=== PATIENT | male | born 1950 | race Caucasian/White ===

== ENCOUNTER 2024-10-27 06:12 | Inpatient (IN) | payer OTHER, SELFPAY ==
[2024-10-26 23:58] VITALS: BP 104/53; BMI 31.9
[2024-10-27] VITALS (12 sets, daily range): BP systolic 92–152; BP diastolic 43–79; BMI 31.7
[2024-10-27 00:23] LABS: ALT (SGPT) 27 U/L (0-50); AST (SGOT) 20 U/L (17-59); Albumin 3.6 g/dl (3.5-5.0); Alkaline Phosphatase 56 U/L (38-126); Blood Urea Nitrogen 35 mg/dl (9-20); Calcium 9.8 mg/dl (8.4-10.2); Carbon Dioxide 27 mmol/L (22-30); Chloride 97 mmol/L (98-107); Estimated Creatinine Clearance 70 ml/min; Glucose 162 mg/dl (70-99); INR 1.14; PT 14.9 Sec (11.4-14.6); Potassium 5.1 mmol/L (3.5-5.1); Sodium 133 mmol/L (135-145); Total Bilirubin 0.7 mg/dl (0.2-1.3); Total Protein 6.4 g/dl (6.3-8.2); eGFR > 60.00
[2024-10-27 00:24] LABS: APTT 34.8 Sec (23.4-35.0)
[2024-10-27 00:37] LABS: % Basophils 0.6 % (0-2); % Eosinophils 1.4 % (0-6); % Immature Granulocytes 1.8 % (0-0.5); % Lymphocytes 12.5 % (20.5-51.1); % Monocytes 5.3 % (1.7-9.3); % Neutrophils 78.4 % (42.2-75.2); Absolute Basophils 0.1 10^3/uL (0-0.2); Absolute Eosinophils 0.2 10^3/uL (0-0.7); Absolute Immature Granulocytes 0.2 10^3/uL (0-0.05); Absolute Lymphocytes 1.6 10^3/uL (1.2-3.4); Absolute Monocytes 0.7 10^3/uL (0.1-0.6); Absolute Neutrophils 10.2 10^3/uL (1.4-6.5); Hematocrit 36.2 % (39.0-52.0); Hemoglobin 12.3 g/dL (13.0-18.0); Mean Corpuscular Hgb 30.4 pg (27.0-31.0); Mean Corpuscular Volume 89.6 fL (80.0-94.0); Mean Platelet Volume 10.6 fL (7.4-10.4); Nucleated Red Blood Cells % 0 % (-); Platelet Count 409 10^3/uL (130-400); Red Blood Cell Count 4.04 10^6/uL (4.70-6.10); Red Cell Dist. Width 12.7 % (11.5-14.5)
--- NOTE | 2024-10-27 03:09 | ED.GENMED ---
History of Present Illness
General
Chief Complaint: Rectal Bleeding
Source: patient
Exam Limitations: none
Time Seen by Provider: 10/27/24 02:44
Nursing documentation reviewed up to this point in time: agreed with
History of Present Illness
History of Present Illness:
This is a 74 y/o male with pmh of afib on xarelto, htn, bipolar disorder who presents to the emergency department today with concerns of dark tarry stools for the past 3 days. Patient comes from [facility] and states that when he first started
having these episodes, a nurse was helping him clean up and noticed the stool was very dark in appearance. Pt denies iron supplementation, pepto-bismol use. Patient denies NSAID use, abdominal pain, toyin rectal bleeding, fevers, chills, chest pain,
sob.
Review of Systems
Review of Systems
All Other Systems: ROS reviewed and negative except as documented in HPI and ROS
Phy Exam
Physical Exam
Physical Exam:
General: Patient is well appearing and in no acute distress; non-toxic
Skin: Warm and dry, no rashes or lesions
Head: Normocephalic, atraumatic
Eyes: Sclera non-icteric. EOMs intact.
Cardiac: Regular rate and rhythm, no murmurs
Peripheral Vascular: No lower extremity swelling or edema
Pulm: Normal respiratory effort, no wheezes, rales, or rhonchi
Abdomen: No abdominal tenderness to palpation
Genitourinary: Dark tarry heme positive stool within rectal vault
Neuro: CN II-XII intact, no focal neurologic deficits.
Psychiatric: Appropriate mood and affect.
Course
Orders/Labs/Results
Orders:
Orders
10/26/24 23:55
Type+Screen Urgent
Cardiac Monitoring- Treatment ONCE
IV Insert/Care/Rem.- Treatment PRN
Complete Blood Count/With Diff Urgent
Comprehensive Metabolic Panel Urgent
PTT Urgent
Prothrombin Time Urgent
Pulse Ox/spot Check [RESP] Urgent
Quantity: 1
Special Instructions: ON ROOM AIR
10/27/24 01:02
ABO2 Urgent
BBK Wristband Number:
Associate notified that ABO2 has been ordered: [id number]
Date: 10/27/24
Time: 00:18
Biological Plant Operator ID: [id number]
10/27/24 03:21
0.9% Sodium Chloride 1000 ml [Nss] 1,000 ml IV BOLUS
10/27/24 04:01
Pantoprazole [Protonix IV] 40 mg IV NOW STA
10/27/24 05:00
Flush (0.9% Sodium Chloride) [Flush (Nss)] See Dose Instructions IV PER PROTOCOL
10/27/24 06:00
Admit/Transfer Patient As Directed
Co-Sign Provider:
Level of Care: Inpatient admission
Assign to:: Telemetry
Physician / Group: hospitalist
Diagnosis: GI bleed
Reason for Telemetry: Other
Other Reason for Telemetry: gi bleed
Date to Stop Telemetry: 10/29/24
Time to Stop Telemetry: 11:00
Reason for Hospitalization: gi bleed
Expected length of stay greater than two midnights?: Yes
ELOS- Estimated Length of Stay in days: 2
I certify the patient meets the requirements for IP care: Yes
Clear Liquid
At Your Request: Full Participation
Does patient need a safe tray?: No
10/27/24 06:01
Code Status As Directed
Resuscitation Status: Full Code
10/27/24 07:44
Insulin Aspart Corrective Low [Novolog Flexpen-Low Resistance] See Protocol SC AC
Ondansetron Injectable [Zofran] 4 mg IV Q6HPRN PRN
10/27/24 07:44
Consult Notification Routine
Specialty to Notify: Gastroenterology
Date consulting provider notified: 10/27/24
Time consulting provider notified: 07:45
Notified:: Provider
Comment: TT
GASTROINTESTINAL CONSULT Routine
Consulting Provider: Benoit Martines
Was physician already notified: No
Reason for consult: upper gi bleed
Activity As Directed
Activity Level: With Assistance
Bedside Glucose Monitoring As Directed
Frequency: AC&HS
INT (Intravenous Needle Therapy) As Directed
Comment: Place 2 IV catheters of the largest bore possible until stable
Pneumatic Compression Sleeves As Directed
Type: Knee high
Vital Signs As Directed
Frequency: Per unit guidelines
DX Deep Vein Thrombosis Video Routine
10/27/24 08:00
H&H Q8H
ARIPiprazole [Abilify] 5 mg PO DAILY
Bupropion(24Hr)Extended Releas [WELLBUTRIN XL (24 hour extended release)] 450 mg PO DAILY
Gabapentin [Neurontin] 900 mg PO DAILY
Metoprolol Xl [Toprol Xl] 25 mg PO DAILY
Oseltamivir Phosphate [Tamiflu] 75 mg PO DAILY
testosterone See Dose Instructions TRANSDERM DAILY
10/27/24 16:00
H&H Q8H
10/27/24 18:00
Pantoprazole [Protonix IV] 40 mg IV Q12H
10/29/24 11:00
DC Protocol for Telemetry ONCE
Abnormal Lab Results
10/27/24
00:03
WBC 13.0 H 10^3/uL
(4.8-10.8)
RBC 4.04 L 10^6/uL
(4.70-6.10)
Hgb 12.3 L g/dL
(13.0-18.0)
Hct 36.2 L %
(39.0-52.0)
Plt Count 409 H 10^3/uL
(130-400)
MPV 10.6 H fL
(7.4-10.4)
Abs Immat Gran (auto) 0.2 H 10^3/uL
(0-0.05)
Absolute Neuts (auto) 10.2 H 10^3/uL
(1.4-6.5)
Absolute Monos (auto) 0.7 H 10^3/uL
(0.1-0.6)
Immature Gran % 1.8 H %
(0-0.5)
Neutrophils % 78.4 H %
(42.2-75.2)
Lymphocytes % 12.5 L %
(20.5-51.1)
PT 14.9 H Sec
(11.4-14.6)
Sodium 133 L mmol/L
(135-145)
Chloride 97 L mmol/L
(98-107)
BUN 35 H mg/dl
(9-20)
Glucose 162 H mg/dl
(70-99)
10/27/24 00:03
10/27/24 00:03
Vital Signs
Initial and Last Documented VS:
Initial Vital Signs
Temp Pulse Resp BP Pulse Ox
98.0 F 65 20 104/53 97
10/26/24 23:58 10/26/24 23:58 10/26/24 23:58 10/26/24 23:58 10/26/24 23:58
Last Documented Vital Signs
Temp Pulse Resp BP Pulse Ox
98.0 F 73 17 121/67 98
10/26/24 23:58 10/27/24 07:30 10/27/24 07:30 10/27/24 07:00 10/27/24 07:30
MDM/Problems Addressed
Differential Diagnosis Includes:
ddx include gastric ulcer, duodenal ulcer, esophagitis, esophageal varies, devin pichardo tear
MDM/Problems Addressed:
74 y/o male presents to the ER with 3 days of melena. Heme positive stool on exam. He is hemodynamically stable. Case reviewed with ED attending. Protonix started. No indication for xarelto reversal at this time. Will refer for admission.
*Pulse Oximetry
Patient hypoxic: no
*Critical Care Note
Total Time (30-74mins, 75-104mins- exclusive of procedures): Not Applicable
Data Reviewed
Review of Other/Old Records Reveals: Records (no previous ER physician documentation or discharge summaries to review)
Source: patient and records
ED Attending Note
-
Portions of this chart may have been created with voice recognition software.� Occasional wrong word or��sound alike� substitutions may have occurred due to the inherent limitations of voice recognition software.
Discharge Plan
Departure
Patient Disposition: Admit
Date of Disposition: 10/27/24
Time of Disposition: 04:01
Admit to: Med/Surg
Presentation/result/management discussed w/ accepting MD/DO: Hospitalist
Patient with high blood pressure during this ER visit?: No
Condition: Fair
Discharge Problem:
Acute gastrointestinal bleeding
Interventions
Interventions:
*Risk Screen - Suicide Last Done: 10/26/24 23:58
*General Assessment Last Done: 10/26/24 23:58
*Neglect/Abuse Screening Last Done: 10/26/24 23:58
*ED- Fall Risk Assessment Last Done: 10/26/24 23:58
*Nursing Disposition Last Done: 10/27/24 07:44
WV-Rsqebs-Vnyylspmhy Assessment Last Done: 10/27/24 03:00
ED- Cardiac Assessment Last Done: 10/27/24 00:00
ED- Pulmonary Assessment Last Done: 10/27/24 00:00
Discharge Date and Time
Discharge Date/Time: 10/27/24 07:45
[2024-10-27] MEDS: NSS 1000 IV (03:37)
[2024-10-27] MEDS: FLUSH (NSS) 1 FLUSH IV (04:27)
[2024-10-27] MEDS: PROTONIX IV 40 MG IV ×2 (04:27→18:09)
--- NOTE | 2024-10-27 06:25 | EDRN ---
Patient is sleeping at this time, call ramos in reach, admission orders were placed and waiting on a bed at this time.
--- NOTE | 2024-10-27 06:47 | W.PN.HOSP.TC ---
Today's Communication/Plan
-
see a/p
Assessment / Plan
Assessment / Plan
Physical Exam
General: No acute distress. Appears Comfortable at this time. Obese
HEENT: NormoCephalic, Anicteric, Moist mucous membranes and Atraumatic
Respiratory: Clear to auscultation b/l, no crackles or wheezing
Cardiac: S1/S2 and Regular Rhythm
GI: Soft, Non Tender, Non Distended, Bowel Sounds present
Musculoskeletal: No Clubbing, No Cyanosis and No Edema
Skin: Warm
Neuro: AOx3 conversant coherent
Psych: Calm
74M Bipolar NIDDM afib Xarelto HTN presenting from SNF Rehab with history of 3 days of melena. CBC showed stable hemoglobin. Hemodynamically stable. Suspect upper GI bleed/ulcer in the setting of Xarelto use.
PLAN:
GI bleed
- Tele admit
- ppi iv bid
- type and screen, trend h&h and transfuse for significant drop or Hgb < 7 (has not required transfusion)
- holding Xarelto.
- holding bp meds for now
- clear liquid diet
- GI consultation appreciated npo after midnight for EGD
DM II
- holding metformin
- sliding scale insulin
DVT PPX - SCDs
Code status - Full Code
I spent a total of 50 minutes with the patient or on the floor. More than 50% of this time involved counseling and coordination of care.
Anticipated Discharge: 24 - 48 hours
Subjective/Interval History
-
Date of Service: October 27, 2024
No acute distress, resting comfortably in bed. Reports overall feeling well. Denies further bloody bowel movements since admission.
Objective Data
-
Labs:
Laboratory Results
10/27/24
00:03
WBC 13.0 H
Hgb 12.3 L
Hct 36.2 L
Plt Count 409 H
PT 14.9 H
INR 1.14
APTT 34.8
Sodium 133 L
Potassium 5.1
Chloride 97 L
Carbon Dioxide 27
BUN 35 H
Creatinine 1.0
Glucose 162 H
Calcium 9.8
Total Bilirubin 0.7
AST 20
ALT 27
Alkaline Phosphatase 56
Vital Signs:
Vital Signs
Temp Pulse Resp BP Pulse Ox
98.0 F 66 17 116/70 99
10/26/24 23:58 10/27/24 06:15 10/27/24 06:15 10/27/24 06:00 10/27/24 06:15
--- NOTE | 2024-10-27 06:58 | HPS.HSE ---
Family Physician
-
Family Physician: Elle Liao MD
Chief Complaint
-
Melena
History of Present Illness
This is a 74-year-old male with past medical history significant for bipolar disorder, czl-rhprvry-azqskxnti diabetes, atrial fibrillation on Xarelto, hypertension transferred from rehab to the emergency department for melena.
Patient unable to provide much history. According to him he been doing well until the last 2 to 3 days when he started having dark stool. On the day of transfer the patient had large diarrheal stool that was back and felt to be bloody. He denied
feeling dizzy or lightheaded. He denied having any abdominal pain. He denies any nausea or vomiting. Denies any acute changes in his medication. He reports that he has been on Xarelto for some time without any issues. He denies any addition of
NSAIDs to his medications. Patient denies any prior history of GI bleed. He denies any alcohol use. Unknown history of any prior EGD or colonoscopy.
While he was in the emergency department he had a heme positive dark stool.
Blood pressure was 99/50 with a pulse of 65 satting 98% on room air. He was afebrile. His hemoglobin was 12.3 which is similar to prior. He has normal coags and platelets. White count was slightly elevated at 13. His electrolytes were normal.
BUN slightly elevated at 35 and creatinine of 1.0. Glucose was normal.
Medical History
Past Medical History
Past Medical History: Reports Arrhythmia (Atrial fibrillation on Xarelto), HTN, NIDDM and Psychiatric (Bipolar disorder)
Past Surgical History: Reports Other
Social History
Tobacco: Non-smoker
Alcohol: None
Drug: None
Personal: Single
Family History
Family History: Not pertinent
Allergies / Home Medications
Allergies reflects when Allergies were last updated in [facility].
Home Medications with original date entered in [facility]
Allergy/Medication List:
Allergies
Allergy/AdvReac Type Severity Reaction Status Date / Time
latex Allergy Mild Unknown Verified 10/27/24 00:09
Home Medications
acetaminophen 325 mg tablet (Tylenol) 650 mg PO Q6H PRN pain 10/27/24
amlodipine 2.5 mg tablet 2.5 mg PO DAILY 10/27/24
aripiprazole 5 mg tablet (Abilify) 5 mg PO DAILY 10/27/24
bisacodyl 10 mg rectal suppository 10 mg OR BID no BM 10/27/24
bupropion HCl 450 mg 24 hr tablet, extended release 450 mg PO DAILY 10/27/24
gabapentin 300 mg tablet 900 mg PO DAILY 10/27/24
magnesium hydroxide 400 mg/5 mL oral suspension (Milk of Magnesia) 30 ml PO DAILY PRN no BM 10/27/24
metformin 1,000 mg tablet 1,000 mg PO BID 10/27/24
methocarbamol 500 mg tablet 500 mg PO TID 10/27/24
metoprolol succinate 25 mg tablet,extended release 24 hr 25 mg PO DAILY 10/27/24
multivitamin 1 tab PO DAILY 10/27/24
oseltamivir 75 mg capsule (Tamiflu) 75 mg PO DAILY 10/27/24
ramipril 10 mg capsule 10 mg PO DAILY 10/27/24
rivaroxaban 20 mg tablet (Xarelto) 20 mg PO DAILY 10/27/24
testosterone 1.62 % (20.25 mg/1.25 gram) transdermal gel packet 3 mg transdermal DAILY 10/27/24
triamterene 37.5 mg-hydrochlorothiazide 25 mg tablet 1 tab PO DAILY 10/27/24
Review of Systems
-
History Source: Patient
Constitutional: Reports No Symptoms
EENT: Reports No Symptoms
Cardiac: Reports No Symptoms
Abdomen/GI: Reports Black Stools
: Reports No Symptoms
Musculoskeletal: Reports No Symptoms
Skin: Reports No Symptoms
Neurological: Reports No Symptoms
Endocrine: Reports No Symptoms
Hematologic/Lymphatic: Reports No Symptoms
Psych: Reports No Symptoms
Physical Exam
Vital Signs
Vital Signs
Temp Pulse Resp BP Pulse Ox
98.0 F 66 17 116/70 99
10/26/24 23:58 10/27/24 06:15 10/27/24 06:15 10/27/24 06:00 10/27/24 06:15
Physical Exam
General: Well Developed, Well Nourished, No Apparent Distress and Comfortable
HEENT: NormoCephalic, Anicteric, Moist mucous membranes and Atraumatic
Respiratory: Clear
Cardiac: S1/S2 and Regular Rhythm
Breast: Deferred by me
GI: Soft, Non Tender, Non Distended and Normal Bowel Sounds
Rectal: Hem Positive
Genito-urinary: Deferred by me
Musculoskeletal: No Clubbing, No Cyanosis and No Edema
Skin: Warm
Neuro: AO x 3 and Nonfocal/grossly intact
Hematologic/Lymphatic: No Lymphadenopathy
Psych: Calm
Laboratory Results
-
10/27/24 00:03
10/27/24 00:03
Laboratory Results
PT 14.9 Sec (11.4-14.6) H 10/27/24 00:03
INR 1.14 10/27/24 00:03
APTT 34.8 Sec (23.4-35.0) 10/27/24 00:03
Total Bilirubin 0.7 mg/dl (0.2-1.3) 10/27/24 00:03
AST 20 U/L (17-59) 10/27/24 00:03
ALT 27 U/L (0-50) 10/27/24 00:03
Alkaline Phosphatase 56 U/L (38-126) 10/27/24 00:03
Data Reviewed
-
Lab Data: Labs Reviewed by me
Old Records: Reviewed
Impression/Plan
-
IMPRESSION:
This is a 74-year-old with history of 3 days of melena presenting to the emergency department after a large melanotic stool. History of A-fib currently on Xarelto with last use yesterday. No abdominal pain nausea or vomiting. CBC shows stable
hemoglobin. Hemodynamically stable as well. Suspect upper GI bleed in the setting of Xarelto use but cannot rule out bleeding ulcer.
PLAN:
GI bleed
- admit to telemetry
- ppi iv bid
- type and screen, trend h&h and transfuse for significant drop or Hgb < 7
- holding Xarelto. Given stability, did not reverse
- holding bp meds for now
- clear liquid diet
- GI consultation
DM II
- holding metformin
- sliding scale insulin
DVT PPX - SCDs
Code status - Full Code
[2024-10-27 08:10] LABS: Glucose - Point of Care 134 mg/dl (70-99)
[2024-10-27] MEDS: NOVOLOG FLEXPEN-LOW RESISTANCE SC ×2 (08:19→12:19)
--- NOTE | 2024-10-27 08:46 | CON.GI ---
Addendum entered and electronically signed by Benoit Martines MD 10/27/24 17:10:
The patient was seen and examined by me independently in collaboration with the nurse practitioner.
Past medical history/social history/medications/allergies/family history reviewed.
Lab data and imaging data reviewed.
74-year-old male past medical history atrial fibrillation on Xarelto presenting with melena. Hemoglobin is stable at 12. BUN is a little elevated at 35. He denies any GI complaints. Prior NSAID use. Last Xarelto was 10/25.
Given NSAID use suspect he may have peptic ulcer disease, versus gastritis or duodenitis.
Discussed with patient risk, alternatives, benefits of upper endoscopy he is agreeable. Risks of endoscopy include but not limited to bleeding, infection, perforation. Patient initially hesitant but now agreeable. Will plan to proceed with
endoscopy tomorrow.
We did discuss a possible colonoscopy if the upper endoscopy is negative which the patient would not like to proceed with. However, we can readdress after endoscopy findings.
Addendum entered and electronically signed by OMEGA Aldana 10/27/24 09:49:
offered EGD today but pt declines. He still declines for me to call significant other. Will allow clears and he will review with Dr. Martines for tomorrow. He also declines colon
Original Note:
Consultation
-
Date/Time Consultation Requested: 10/27/24 7445
Date/Time Consultation Performed: 10/27/24 0930
Medical History
Chief Complaint / HPI
History of Present Illness:
Pt is a 74yo with hx bipolar disorder, afib on Xarelto, HTN, NIDDM with onset of melena. In review with patient he admits to care in [place] but had recent back fracture with need for SNF. He admits to taking a few Aleve at home with fall then
ended up at SNF for rehab. Pt admits to hx EGD and colon in past years ago in [place] did not recall any abnormal findings. He does admits to hx GERD but no chronic meds. He also admit to recent rectal soreness and diarrhea prior to admission.
He otherwise denies odynophagia, dysphagia, nausea, vomiting, abdominal pain, constipation or red blood in stools. On admission hbg was 12.3 with BUN 356. WBC 13, Na 133, glucose 162.
Past Medical History
Past Medical History: Arrhythmias (afib ), GERD, HTN, NIDDM and Psychiatric (bipolar )
Social History
Tobacco: Non-Smoker
Alcohol: None
Drug: None
Living: [facility] (current SNF but was alone prior to admission)
Employment: Retired
Family History
Family History: Other (no family hx GI problems)
Allergies / Home Medications
Allergy/AdvReac Type Severity Reaction Status Date / Time
latex Allergy Mild Unknown Verified 10/27/24 00:09
�Medication �Instructions �Recorded
acetaminophen 325 mg tablet 650 mg PO Q6H PRN pain 10/27/24
(Tylenol)
amlodipine 2.5 mg tablet 2.5 mg PO DAILY 10/27/24
aripiprazole 5 mg tablet (Abilify) 5 mg PO DAILY 10/27/24
bisacodyl 10 mg rectal suppository 10 mg NE BID no BM 10/27/24
bupropion HCl 450 mg 24 hr tablet, 450 mg PO DAILY 10/27/24
extended release
gabapentin 300 mg tablet 900 mg PO DAILY 10/27/24
magnesium hydroxide 400 mg/5 mL 30 ml PO DAILY PRN no BM 10/27/24
oral suspension (Milk of Magnesia)
metformin 1,000 mg tablet 1,000 mg PO BID 10/27/24
methocarbamol 500 mg tablet 500 mg PO TID 10/27/24
metoprolol succinate 25 mg 25 mg PO DAILY 10/27/24
tablet,extended release 24 hr
multivitamin 1 tab PO DAILY 10/27/24
oseltamivir 75 mg capsule (Tamiflu) 75 mg PO DAILY 10/27/24
ramipril 10 mg capsule 10 mg PO DAILY 10/27/24
rivaroxaban 20 mg tablet (Xarelto) 20 mg PO DAILY 10/27/24
testosterone 1.62 % (20.25 mg/1.25 3 mg transdermal DAILY 10/27/24
gram) transdermal gel packet
triamterene 37.5 1 tab PO DAILY 10/27/24
mg-hydrochlorothiazide 25 mg tablet
Review of Systems
-
Unable to obtain full review of systems at this time due to: Other (some limited history )
History Source: Patient
Constitutional: Reports Weight Loss (few lbs with SNF)
EENT: Reports No Symptoms
Respiratory: Reports No Symptoms
Cardiac: Reports No Symptoms
Abdomen/GI: Reports Diarrhea, Black Stools (dark stools ) and Other (recent rectal discomfort )
: Reports No Symptoms
Musculoskeletal: Reports Other (recent fall with back pain)
Skin: Reports No Symptoms
Neurological: Reports Weakness
Endocrine: Reports No Symptoms
Hematologic/Lymphatic: Reports Bleeding
Vital Signs
Temp Pulse Resp BP Pulse Ox
98.0 F 73 17 121/67 98
10/26/24 23:58 10/27/24 07:30 10/27/24 07:30 10/27/24 07:00 10/27/24 07:30
Physical Exam
Exam
General: Well Developed, Well Nourished and No Apparent Distress
HEENT: Normocephalic and Anicteric
Respiratory: Clear
Cardiac: Regular Rhythm
GI: Soft and Non Distended
Rectal: Brown (dark brown heme + some rectal irritation but admits to some improvement )
Genito-urinary: No Costovertebral Tender
Musculoskeletal: No Clubbing and No Cyanosis
Skin: Warm and Dry
Neuro: Awake, Alert and AO x 3
Psych: Calm
Results
WBC 13.0 10^3/uL (4.8-10.8) H 10/27/24 00:03
Hgb 12.3 g/dL (13.0-18.0) L 10/27/24 00:03
Hct 36.2 % (39.0-52.0) L 10/27/24 00:03
MCV 89.6 fL (80.0-94.0) 10/27/24 00:03
Plt Count 409 10^3/uL (130-400) H 10/27/24 00:03
Absolute Neuts (auto) 10.2 10^3/uL (1.4-6.5) H 10/27/24 00:03
PT 14.9 Sec (11.4-14.6) H 10/27/24 00:03
INR 1.14 10/27/24:03
APTT 34.8 Sec (23.4-35.0) 10/27/24 00:03
Sodium 133 mmol/L (135-145) L 10/27/24:03
Potassium 5.1 mmol/L (3.5-5.1) 10/27/24 00:03
Chloride 97 mmol/L (98-107) L 10/27/24 00:03
Carbon Dioxide 27 mmol/L (22-30) 10/27/24 00:03
BUN 35 mg/dl (9-20) H 10/27/24 00:03
Creatinine 1.0 mg/dL (0.7-1.3) 10/27/24 00:
Calcium 9.8 mg/dl (8.4-10.2) 10/27/24 00:03
Total Bilirubin 0.7 mg/dl (0.2-1.3) 10/27/24 00:03
AST 20 U/L (17-59) 10/27/24 00:03
ALT 27 U/L (0-50) 10/27/24 00:03
Alkaline Phosphatase 56 U/L (38-126) 10/27/24 00:03
Diagnostic Image Results:
Prior GI Procedures:
EGD: in past did not recall abnormal results
Colonoscopy: in past did not recall abnormal results in [place]
Assessment / Plan
-
Pt is a 74yo with hx bipolar disorder, afib on Xarelto, HTN, NIDDM with onset of melena. In review with patient he admits to care in [place] but had recent back fracture with need for SNF. He admits to taking a few Aleve at home with fall then
ended up at SNF for rehab. Pt admits to hx EGD and colon in past years ago in [place] did not recall any abnormal findings. He does admits to hx GERD but no chronic meds. He also admit to recent rectal soreness and diarrhea prior to admission.
He otherwise denies odynophagia, dysphagia, nausea, vomiting, abdominal pain, constipation or red blood in stools. On admission hbg was 12.3 with BUN 356. WBC 13, Na 133, glucose 162.
-melena prior to admission rectal dark brown heme + on admission
-mild anemia
-recent rectal irritation
-recent fall with back injury
-Afib on Xarelto prior to admission
other med problems:
-bipolar disorder
-HTN
-hyperlipidemia
-NIDDM
PLAN:
etiology of melena related to PUD with hx some prior NSAID in setting of Xarelto vs gastritis, AVM, mass vs other
plan for EGD will review timing with Dr. Martines
if EGD neg consider colonoscopy
last Xarelto 10/25 per SNF cont hold
trend hbg transfuse less than 7
trend stool pattern - pt reports no stools overnight
cont PPI BID
reviewed with nursing for local rectal care with complaints of pain
I offered to call significant other and pt declined
I reviewed with SNF pt was on Tamiflu prior to admission for prophylaxis was not positive prior to admission
-
-
Thank you for consultation and allowing me to participate in the patient's care. Please call the admissions manager rn GI physician during the after hours with any questions or concerns.
[2024-10-27] MEDS: NEURONTIN 900 MG PO (09:52)
[2024-10-27] MEDS: TOPROL XL 25 MG PO (09:53)
[2024-10-27] MEDS: TAMIFLU 75 MG PO (09:53)
[2024-10-27] MEDS: WELLBUTRIN XL (24 hour extended release) 450 MG PO (09:53)
--- NOTE | 2024-10-27 10:12 | CM ---
Addendum entered by Angeli Peña 10/27/24 14:13:
Call to patients primary contact- number not in service. Per [facility], patient has [employer] insurance- ID# [id number], provided to admissions.
Original Note:
CM reviewed chart, patient seen bedside, initial assessment completed. Patient reports he came from [facility] for rehab, otherwise lives independently in a multiple story home, first floor set up, no steps to enter. Patient reports he is
looking to downsize. Patient reports he typically uses a walker for ambulation. Patient reports no children or family, does have one friend as a support. Patient reports he is agreeable to return to [facility] for rehab prior to discharging
home. Patient listed as self pay, does not remember insurance- call/referral sent to [facility] to obtain patients insurance information. TT to Hospitalist for PT orders. CM will continue to follow for all discharge planning needs.
Plan; return to [facility] SNF, may need auth for return, awaiting patients insurance confirmation.
[2024-10-27 10:34] LABS: Hematocrit 33.2 % (39.0-52.0); Hemoglobin 11.2 g/dL (13.0-18.0)
[2024-10-27 12:15] LABS: Glucose - Point of Care 147 mg/dl (70-99)
[2024-10-27] MEDS: ABILIFY 5 MG PO (12:19)
[2024-10-27 16:23] LABS: Hematocrit 35.8 % (39.0-52.0); Hemoglobin 12.1 g/dL (13.0-18.0)
[2024-10-27 16:33] LABS: Glucose - Point of Care 181 mg/dl (70-99)
[2024-10-27] MEDS: NOVOLOG FLEXPEN-LOW RESISTANCE 1 UNITS SC (18:10)
[2024-10-27] MEDS: NSS (PRESERVATIVE FREE) 10 ML IV (18:10)
[2024-10-27 21:55] LABS: Glucose - Point of Care 230 mg/dl (70-99)
[2024-10-28] VITALS (13 sets, daily range): BP systolic 18–154; BP diastolic 64–91
[2024-10-28] MEDS: PROTONIX IV 40 MG IV ×2 (05:19→17:26)
[2024-10-28] MEDS: NSS (PRESERVATIVE FREE) 10 ML IV ×2 (05:19→17:26)
[2024-10-28] MEDS: WELLBUTRIN XL (24 hour extended release) 450 MG PO (07:41)
[2024-10-28] MEDS: NEURONTIN 900 MG PO (07:41)
[2024-10-28] MEDS: TAMIFLU 75 MG PO (07:42)
[2024-10-28] MEDS: ABILIFY 5 MG PO (07:42)
[2024-10-28] MEDS: TOPROL XL 25 MG PO (07:42)
[2024-10-28 07:48] LABS: Hematocrit 33.9 % (39.0-52.0); Hemoglobin 11.8 g/dL (13.0-18.0); Mean Corp Hgb Conc. 34.8 g/dL (33.0-37.0); Mean Corpuscular Hgb 30.9 pg (27.0-31.0); Mean Corpuscular Volume 88.7 fL (80.0-94.0); Mean Platelet Volume 10.1 fL (7.4-10.4); Platelet Count 345 10^3/uL (130-400); Red Blood Cell Count 3.82 10^6/uL (4.70-6.10); Red Cell Dist. Width 12.8 % (11.5-14.5); White Blood Cell Count 10.3 10^3/uL (4.8-10.8)
[2024-10-28 08:07] LABS: Glucose - Point of Care 187 mg/dl (70-99)
--- NOTE | 2024-10-28 08:11 | W.PN.HOSP.TC ---
Today's Communication/Plan
-
see a/p
Assessment / Plan
Assessment / Plan
Physical Exam
General: No acute distress. Appears Comfortable at this time. Obese
HEENT: NormoCephalic, Anicteric, Moist mucous membranes and Atraumatic
Respiratory: Clear to auscultation b/l, no crackles or wheezing
Cardiac: S1/S2 and Regular Rhythm
GI: Soft, Non Tender, Non Distended, Bowel Sounds present
Musculoskeletal: No Clubbing, No Cyanosis and No Edema
Skin: Warm
Neuro: AOx3 conversant coherent
Psych: Calm
74M Bipolar NIDDM afib Xarelto HTN recent Hx Vertebrae Fx treated at [facility] and discharged to SNF rehab, presents from Rehab with history of 3 days of melena. CBC showed stable hemoglobin. Hemodynamically stable. Suspect upper GI bleed/ulcer
in the setting of Xarelto use.
PLAN:
GI bleed
- Tele admit
- ppi iv bid
- trend h&h and transfuse for significant drop or Hgb < 7 (has not required transfusion)
- GI consultation appreciated EGD noted Erosive Gastritis Biopsied, Avoid NSAIDs, PPI BID 8 wks, ok to restart Xarelto
DM II
- resume metformin
- sliding scale insulin
HTN
Cont home Metoprolol
Home Ramipril resumed
Amlodipine Triamterene-HCTZ on hold d/t intermittent low pressures
pAfib
Cont home Metoprolol
Xarelto resumed
Hypomagnesemia
monitor and replete as necessary
Hx Vertebrae Fx treated at [facility]
TLSO brace
PT/OT
pain control
cont Neurontin
hold methocarbamol
records requested
DVT PPX - SCDs
Code status - Full Code
I spent a total of 45 minutes with the patient or on the floor. More than 50% of this time involved counseling and coordination of care.
Anticipated Discharge: 24 - 48 hours
Subjective/Interval History
-
Date of Service: October 28, 2024
No acute distress sitting up comfortably in bed. Overall reports feeling well. Denies new acute issues a this time.
Objective Data
-
Labs:
Laboratory Results
10/28/24
06:49
WBC 10.3
Hgb 11.8 L
Hct 33.9 L
Plt Count 345
Sodium Pending
Potassium Pending
Chloride Pending
Carbon Dioxide Pending
BUN Pending
Creatinine Pending
Glucose Pending
Calcium Pending
Vital Signs:
Vital Signs
Temp Pulse Resp BP Pulse Ox
97.6 F 81 20 154/91 99
10/28/24 07:54 10/28/24 07:54 10/28/24 07:54 10/28/24 07:54 10/28/24 07:54
I&O
10/27/24 10/28/24 10/29/24
06:59 06:59 06:59
Intake Total 1260 / 1260
Output Total 1150 / 1150
Balance 110 / 110
[2024-10-28 08:17] LABS: Blood Urea Nitrogen 22 mg/dl (9-20); Calcium 9.3 mg/dl (8.4-10.2); Carbon Dioxide 26 mmol/L (22-30); Chloride 99 mmol/L (98-107); Estimated Creatinine Clearance 78 ml/min; Glucose 169 mg/dl (70-99); Magnesium 1.5 mg/dl (1.6-2.3); Phosphorus 3.8 mg/dl (2.5-4.5); Potassium 3.9 mmol/L (3.5-5.1); Sodium 136 mmol/L (135-145); eGFR > 60.00
[2024-10-28] MEDS: NOVOLOG FLEXPEN-LOW RESISTANCE 1 UNITS SC (08:36)
[2024-10-28 11:41] LABS: Glucose - Point of Care 198 mg/dl (70-99)
[2024-10-28] MEDS: NOVOLOG FLEXPEN-LOW RESISTANCE SC (11:51)
--- NOTE | 2024-10-28 12:10 | CM ---
CM reviewed chart, CM spoke with liaisons from [facility], Raisa and Best, regarding patients PLOF. Per liaison, patient was max assist/dependent with care, TLSO when out of bed, weight bearing as tolerated, AOx2. Best (liaison) will discuss
with therapy at SNF if patient needs brace to work with therapy- will bring brace to hospital if needed- will get back to with this information. Liaison reports patients friend, Corine, and step-son, are involved in patients care. Patient will
require both PT/OT for insurance auth back to [facility] when stable. CM will continue to follow for all discharge planning needs.
Plan; return to SNF when stable, will need auth.
--- NOTE | 2024-10-28 12:20 | W.PN.UPDATE ---
Update Note
Progress Note Update
EGD with erosive gastritis
plan:
- PPI bid x 8 weeks
- f/u biopsies
- ok to eat,
- ok to restart xarelto
will sign off
--- NOTE | 2024-10-28 12:28 | PTCARENOTE ---
10/28- Yunier delivered Brace to room. Patient was in procedure. He educated Nurses and PT how to use brace. Signed for brace at bedside.
[2024-10-28 12:32] LABS: Glucose - Point of Care 202 mg/dl (70-99)
[2024-10-28 17:20] LABS: Glucose - Point of Care 361 mg/dl (70-99)
[2024-10-28] MEDS: NOVOLOG FLEXPEN-LOW RESISTANCE 5 UNITS SC (17:25)
[2024-10-28 21:42] LABS: Glucose - Point of Care 198 mg/dl (70-99)
[2024-10-29 03:50] VITALS: BP 143/72
[2024-10-29] MEDS: NSS (PRESERVATIVE FREE) 10 ML IV ×2 (05:03→17:03)
[2024-10-29] MEDS: PROTONIX IV 40 MG IV ×2 (05:04→17:03)
[2024-10-29 07:20] VITALS: BP 124/65
[2024-10-29] MEDS: ABILIFY 5 MG PO (07:27)
[2024-10-29] MEDS: WELLBUTRIN XL (24 hour extended release) 450 MG PO (07:27)
[2024-10-29] MEDS: ALTACE 10 MG PO (07:27)
[2024-10-29] MEDS: NEURONTIN 900 MG PO (07:27)
[2024-10-29] MEDS: TAMIFLU 75 MG PO (07:28)
[2024-10-29] MEDS: XARELTO 20 MG PO (07:28)
[2024-10-29] MEDS: TOPROL XL 25 MG PO (07:28)
[2024-10-29] MEDS: GLUCOPHAGE 1000 MG PO ×2 (07:28→17:03)
--- NOTE | 2024-10-29 07:29 | W.PN.HOSP.TC ---
Today's Communication/Plan
-
pain control
PT/OT
monitor H&H while on Xarelto
possible discharge SNF rehab tomorrow if H&H improves
Assessment / Plan
Assessment / Plan
Physical Exam
General: No acute distress. Appears Comfortable at this time. Obese
HEENT: NormoCephalic, Anicteric, Moist mucous membranes and Atraumatic
Respiratory: Clear to auscultation b/l, no crackles or wheezing
Cardiac: S1/S2 and Regular Rhythm
GI: Soft, Non Tender, Non Distended, Bowel Sounds present
Musculoskeletal: No Clubbing, No Cyanosis and No Edema
Skin: Warm
Neuro: AOx3 conversant coherent
Psych: Calm
74M Bipolar NIDDM afib Xarelto HTN recent Hx Vertebrae Fx treated at [facility] and discharged to SNF rehab, presents from Rehab with history of 3 days of melena. CBC showed stable hemoglobin. Hemodynamically stable. Suspect upper GI bleed/ulcer
in the setting of Xarelto use.
PLAN:
GI bleed
- Tele admit
- ppi iv bid
- trend h&h and transfuse for significant drop or Hgb < 7 (has not required transfusion)
- GI consultation appreciated EGD noted Erosive Gastritis Biopsied, Avoid NSAIDs, PPI BID 8 wks, ok to restart Xarelto
DM II
- resume metformin
- sliding scale insulin
HTN
Cont home Metoprolol Ramipril
Amlodipine Triamterene-HCTZ on hold d/t intermittent low pressures
pAfib
Cont home Metoprolol
Xarelto cont
Hypomagnesemia
monitor and replete as necessary
Hx Vertebrae Fx treated at [facility]
TLSO brace
PT/OT appreciated return to SNF rehab
pain control
cont Neurontin
resume methocarbamol
records requested
DVT PPX - SCDs
Code status - Full Code
I spent a total of 45 minutes with the patient or on the floor. More than 50% of this time involved counseling and coordination of care.
Anticipated Discharge: Within 24 hours
Subjective/Interval History
-
Date of Service: October 29, 2024
No acute distress sitting up comfortably in bed. Reports increased back pain.
Objective Data
-
Labs:
Laboratory Results
10/29/24
06:00
WBC Pending
Hgb Pending
Hct Pending
Plt Count Pending
Sodium Pending
Potassium Pending
Chloride Pending
Carbon Dioxide Pending
BUN Pending
Creatinine Pending
Glucose Pending
Calcium Pending
Vital Signs:
Vital Signs
Temp Pulse Resp BP Pulse Ox
98 F 74 20 143/72 98
10/29/24 03:50 10/29/24 03:50 10/29/24 03:50 10/29/24 03:50 10/29/24 03:50
I&O
10/28/24 10/29/24 10/30/24
06:59 06:59 06:59
Intake Total 1260 / 1260 970 / 970
Output Total 1150 / 1150 500 / 500
Balance 110 / 110 470 / 470
[2024-10-29 08:11] LABS: Glucose - Point of Care 309 mg/dl (70-99)
[2024-10-29 08:18] LABS: Hematocrit 32.1 % (39.0-52.0); Hemoglobin 10.8 g/dL (13.0-18.0); Mean Corp Hgb Conc. 33.6 g/dL (33.0-37.0); Mean Corpuscular Hgb 30.6 pg (27.0-31.0); Mean Corpuscular Volume 90.9 fL (80.0-94.0); Mean Platelet Volume 10.6 fL (7.4-10.4); Platelet Count 286 10^3/uL (130-400); Red Blood Cell Count 3.53 10^6/uL (4.70-6.10); Red Cell Dist. Width 13.2 % (11.5-14.5); White Blood Cell Count 10.4 10^3/uL (4.8-10.8)
[2024-10-29 08:39] LABS: Blood Urea Nitrogen 25 mg/dl (9-20); Calcium 9.1 mg/dl (8.4-10.2); Carbon Dioxide 26 mmol/L (22-30); Chloride 100 mmol/L (98-107); Estimated Creatinine Clearance 70 ml/min; Glucose 266 mg/dl (70-99); Magnesium 1.7 mg/dl (1.6-2.3); Phosphorus 3.6 mg/dl (2.5-4.5); Potassium 3.6 mmol/L (3.5-5.1); Sodium 136 mmol/L (135-145); eGFR > 60.00
[2024-10-29] MEDS: NOVOLOG FLEXPEN-LOW RESISTANCE 4 UNITS SC (09:16)
--- NOTE | 2024-10-29 11:11 | CM ---
PT indicated SNF.
OT ordered placed.
Spoke with Raisa Horan . Pt will need auth for return to [facility] .
EGD done.
[facility] Pt
report [phone]
fax [phone]
PLAN To [facility] after auth
--- NOTE | 2024-10-29 12:31 | PN.CDI ---
CDI
- -
CDI:
Physician Documentation Request
Admit Date: 10/27/24 06:12
Dear Doctor David,
Patient presented to ED with concerns of dark tarry stools for 3 days. Exam showed heme positive stool in rectal vault.
Patient's home Xarelto was held.
Admitted for GI bleed.
Please clarify if a relationship exist between these conditions:
Yes, GI bleed is related to/associated with/due to/exacerbated by Xarelto
No, GI bleed is not related to/associated with/due to/exacerbated by Xarelto
Unable to determine
Use of terms such as suspected, likely, concern for, or probable (associated with a specific diagnosis that is being evaluated, monitored, or treated as if it exists) are acceptable and can be coded in the inpatient setting, when documented at the
time of discharge.
Thank you,
Lesly Banks RN BSN
CDI Specialist
tiger text
Please use your independent medical judgment in providing your response.
[2024-10-29] MEDS: MAGNESIUM SULFATE 50 IV (12:52)
[2024-10-29] MEDS: TYLENOL 1000 MG PO (12:58)
[2024-10-29 13:10] LABS: Glucose - Point of Care 281 mg/dl (70-99)
[2024-10-29] MEDS: NOVOLOG FLEXPEN-LOW RESISTANCE 3 UNITS SC (13:16)
[2024-10-29 15:43] VITALS: BP 105/49
[2024-10-29 16:52] LABS: Glucose - Point of Care 164 mg/dl (70-99)
[2024-10-29] MEDS: METHOCARBAMOL 500 MG PO ×2 (17:03→21:17)
[2024-10-29] MEDS: NOVOLOG FLEXPEN-LOW RESISTANCE 1 UNITS SC (17:05)
[2024-10-29 17:14] LABS: Glucose - Point of Care 149 mg/dl (70-99)
[2024-10-29 21:42] LABS: Glucose - Point of Care 218 mg/dl (70-99)
[2024-10-29 22:50] VITALS: BP 128/85
[2024-10-30] MEDS: PROTONIX IV 40 MG IV (05:44)
[2024-10-30] MEDS: NSS (PRESERVATIVE FREE) 10 ML IV (05:44)
--- NOTE | 2024-10-30 07:16 | W.PN.HOSP.TC ---
Today's Communication/Plan
-
Medically stable for discharge back to SNF rehab pending Insurance Auth
Assessment / Plan
Assessment / Plan
Physical Exam
General: No acute distress. Appears Comfortable at this time. Obese
HEENT: NormoCephalic, Anicteric, Moist mucous membranes and Atraumatic
Respiratory: Clear to auscultation b/l, no crackles or wheezing
Cardiac: S1/S2 and Regular Rhythm
GI: Soft, Non Tender, Non Distended, Bowel Sounds present
Musculoskeletal: No Clubbing, No Cyanosis and No Edema
Skin: Warm
Neuro: AOx3 conversant coherent
Psych: Calm
74M Bipolar NIDDM afib Xarelto HTN recent Hx Vertebrae Fx treated at [facility] and discharged to SNF rehab, presents from Rehab with history of 3 days of melena. CBC showed stable hemoglobin. Hemodynamically stable. Suspect upper GI bleed/ulcer
in the setting of Xarelto use.
PLAN:
GI bleed likely exacerbated by Xarelto
- Tele admit
- ppi iv bid
- trend h&h and transfuse for significant drop or Hgb < 7 (has not required transfusion)
- GI consultation appreciated EGD noted Erosive Gastritis Biopsied, Avoid NSAIDs, PPI BID 8 wks, ok to restart Xarelto
DM II
- resume metformin
- sliding scale insulin
HTN
Cont home Metoprolol Ramipril
Amlodipine Triamterene-HCTZ on hold d/t intermittent low pressures
pAfib
Cont home Metoprolol
Xarelto cont
Hypomagnesemia
monitor and replete as necessary
Hx Vertebrae Fx treated at [facility]
TLSO brace
PT/OT appreciated return to SNF rehab
pain control
cont Neurontin
resume methocarbamol
records requested
DVT PPX - SCDs
Code status - Full Code
Medically stable for discharge back to SNF rehab pending Insurance Auth
I spent a total of 35 minutes with the patient or on the floor. More than 50% of this time involved counseling and coordination of care.
Anticipated Discharge: Within 24 hours
Subjective/Interval History
-
Date of Service: October 30, 2024
Objective Data
-
Labs:
Laboratory Results
10/30/24
06:53
WBC Pending
Hgb Pending
Hct Pending
Plt Count Pending
Sodium Pending
Potassium Pending
Chloride Pending
Carbon Dioxide Pending
BUN Pending
Creatinine Pending
Glucose Pending
Calcium Pending
Vital Signs:
Vital Signs
Temp Pulse Resp BP Pulse Ox
98.1 F 65 20 128/85 98
10/29/24 22:50 10/29/24 22:50 10/29/24 22:50 10/29/24 22:50 10/29/24 22:50
I&O
10/29/24 10/30/24 10/31/24
06:59 06:59 06:59
Intake Total 970 / 970 960 / 960
Output Total 500 / 500 2350 / 2350
Balance 470 / 470 -1390 / -1390
[2024-10-30 07:29] VITALS: BP 136/71
[2024-10-30 07:35] LABS: Glucose - Point of Care 138 mg/dl (70-99)
[2024-10-30] MEDS: NOVOLOG FLEXPEN-LOW RESISTANCE SC (07:36)
[2024-10-30 08:02] LABS: Hematocrit 32.6 % (39.0-52.0); Hemoglobin 10.8 g/dL (13.0-18.0); Mean Corp Hgb Conc. 33.1 g/dL (33.0-37.0); Mean Corpuscular Hgb 30.1 pg (27.0-31.0); Mean Corpuscular Volume 90.8 fL (80.0-94.0); Mean Platelet Volume 10.7 fL (7.4-10.4); Platelet Count 269 10^3/uL (130-400); Red Blood Cell Count 3.59 10^6/uL (4.70-6.10); Red Cell Dist. Width 13.2 % (11.5-14.5); White Blood Cell Count 8.8 10^3/uL (4.8-10.8)
[2024-10-30] MEDS: ALTACE 10 MG PO (08:10)
[2024-10-30] MEDS: ABILIFY 5 MG PO (08:10)
[2024-10-30] MEDS: NEURONTIN 900 MG PO (08:11)
[2024-10-30] MEDS: TOPROL XL 25 MG PO (08:11)
[2024-10-30] MEDS: GLUCOPHAGE 1000 MG PO ×2 (08:11→17:01)
[2024-10-30] MEDS: WELLBUTRIN XL (24 hour extended release) 450 MG PO (08:11)
[2024-10-30] MEDS: XARELTO 20 MG PO (08:11)
[2024-10-30] MEDS: TAMIFLU 75 MG PO (08:11)
[2024-10-30] MEDS: METHOCARBAMOL 500 MG PO ×3 (08:11→21:33)
[2024-10-30 08:37] LABS: Blood Urea Nitrogen 24 mg/dl (9-20); Calcium 9.1 mg/dl (8.4-10.2); Carbon Dioxide 27 mmol/L (22-30); Chloride 101 mmol/L (98-107); Estimated Creatinine Clearance 78 ml/min; Glucose 128 mg/dl (70-99); Magnesium 1.9 mg/dl (1.6-2.3); Phosphorus 3.8 mg/dl (2.5-4.5); Potassium 3.5 mmol/L (3.5-5.1); Sodium 136 mmol/L (135-145); eGFR > 60.00
[2024-10-30 10:26] VITALS: BP 126/73; PULSE 71
[2024-10-30 11:00] LABS: Glucose - Point of Care 163 mg/dl (70-99)
[2024-10-30] MEDS: NOVOLOG FLEXPEN-LOW RESISTANCE 1 UNITS SC (11:36)
--- NOTE | 2024-10-30 13:47 | CM ---
CM reviewed chart, patient seen bedside, stable for discharge to SNF. IMM reviewed verbally, agreeable to return to [facility] for rehab. Auth submitted to [facility], reference #[id number], faxed to [phone]. Patient will require ambulance
transport upon discharge. CM will continue to follow for all discharge planning needs.
Plan; [facility], auth pending
[2024-10-30] MEDS: TYLENOL 1000 MG PO (14:36)
[2024-10-30] MEDS: LIDOCAINE 4% PATCH 2 PATCH TOPICAL (14:37)
[2024-10-30 15:34] VITALS: BP 110/64
[2024-10-30 16:16] LABS: Glucose - Point of Care 226 mg/dl (70-99)
[2024-10-30] MEDS: NOVOLOG FLEXPEN-LOW RESISTANCE 2 UNITS SC (17:01)
[2024-10-30] MEDS: MIRALAX 17 GRAMS PO (18:25)
[2024-10-30] MEDS: PROTONIX 40 MG PO (20:05)
[2024-10-30] MEDS: SENOKOT-S 1 TABLET PO (20:05)
[2024-10-30 22:22] LABS: Glucose - Point of Care 174 mg/dl (70-99)
[2024-10-30 23:40] VITALS: BP 127/59
[2024-10-31 07:00] VITALS: BP 144/74
--- NOTE | 2024-10-31 07:49 | W.PN.HOSP.TC ---
Today's Communication/Plan
-
discharge
Assessment / Plan
Assessment / Plan
Physical Exam
General: No acute distress. Appears Comfortable at this time. Obese
HEENT: NormoCephalic, Anicteric, Moist mucous membranes and Atraumatic
Respiratory: Clear to auscultation b/l, no crackles or wheezing
Cardiac: S1/S2 and Regular Rhythm
GI: Soft, Non Tender, Non Distended, Bowel Sounds present
Musculoskeletal: No Clubbing, No Cyanosis and No Edema
Skin: Warm
Neuro: AOx3 conversant coherent
Psych: Calm
74M Bipolar NIDDM afib Xarelto HTN recent Hx Vertebrae Fx treated at [facility] and discharged to SNF rehab, presents from Rehab with history of 3 days of melena. CBC showed stable hemoglobin. Hemodynamically stable. Suspect upper GI bleed/ulcer
in the setting of Xarelto use.
PLAN:
GI bleed likely exacerbated by Xarelto
- Tele admit
- ppi iv bid
- H&H stable throughout stay, no transfusion necessary during this hospitalization
- GI consultation appreciated EGD noted Erosive Gastritis Biopsied, Avoid NSAIDs, PPI BID 8 wks, ok to restart Xarelto
DM II
- resume metformin
- sliding scale insulin
HTN
Cont home Metoprolol Ramipril
Amlodipine Triamterene-HCTZ on hold d/t intermittent low pressures
pAfib
Cont home Metoprolol
Xarelto cont
Hypomagnesemia
monitor and replete as necessary
Constipation
miralax senokot-s
resolved with Fleet enema
Hx Vertebrae Fx treated at [facility]
TLSO brace
PT/OT appreciated return to SNF rehab
pain control
cont Neurontin
resume methocarbamol
Lidocaine Patches
DVT PPX - SCDs
Code status - Full Code
Medically stable for discharge back to SNF rehab with outpatient follow up recommendations.
Total Time Preparing Discharge ___40____ minutes including examination of the patient, summary of the hospital stay, instructions for continuing care to all relevant caregivers; and preparation of discharge records, prescriptions, and referral
forms if necessary.
Anticipated Discharge: Today
Subjective/Interval History
-
Date of Service: October 31, 2024
No acute distress sitting up comfortably in bed. Overall reports feeling well. Looking forward to returning to rehab.
Objective Data
-
Vital Signs:
Vital Signs
Temp Pulse Resp BP Pulse Ox
98.4 F 61 20 127/59 98
10/30/24 23:40 10/30/24 23:40 10/30/24 23:40 10/30/24 23:40 10/30/24 23:40
I&O
10/30/24 10/31/24 11/01/24
06:59 06:59 06:59
Intake Total 960 / 960 960 / 960
Output Total 2350 / 2350 700 / 700
Balance -1390 / -1390 260 / 260
[2024-10-31] MEDS: ABILIFY 5 MG PO (08:34)
[2024-10-31] MEDS: MIRALAX 17 GRAMS PO (08:35)
[2024-10-31] MEDS: LIDOCAINE 4% PATCH 2 PATCH TOPICAL (08:35)
[2024-10-31] MEDS: ALTACE 10 MG PO (08:35)
[2024-10-31] MEDS: GLUCOPHAGE 1000 MG PO (08:35)
[2024-10-31] MEDS: METHOCARBAMOL 500 MG PO ×2 (08:35→15:42)
[2024-10-31] MEDS: NEURONTIN 900 MG PO (08:37)
[2024-10-31] MEDS: SENOKOT-S 1 TABLET PO (08:37)
[2024-10-31] MEDS: PROTONIX 40 MG PO (08:37)
[2024-10-31] MEDS: TOPROL XL 25 MG PO (08:38)
[2024-10-31] MEDS: XARELTO 20 MG PO (08:38)
[2024-10-31] MEDS: TAMIFLU 75 MG PO (08:38)
[2024-10-31] MEDS: WELLBUTRIN XL (24 hour extended release) 450 MG PO (08:38)
[2024-10-31 08:42] LABS: Glucose - Point of Care 156 mg/dl (70-99)
[2024-10-31] MEDS: NOVOLOG FLEXPEN-LOW RESISTANCE SC (08:45)
--- NOTE | 2024-10-31 10:02 | CM ---
CM reviewed chart, auth approved 10/31-11/06, auth #[id number], provided to liaison [facility]. Patient has not had BM in four days, update to SNF. Patient seen bedside, aware transport scheduled for 3:30 p.m. to rehab, pending BM. CM will
continue to follow for all discharge planning needs.
Plan; auth approved to [facility], 3:30 p.m. ambulance transport scheduled, pending BM
[facility]:
Report: [phone]
[2024-10-31] MEDS: NOVOLOG FLEXPEN-LOW RESISTANCE 1 UNITS SC (10:46)
[2024-10-31 11:55] LABS: Glucose - Point of Care 245 mg/dl (70-99)
[2024-10-31 12:28] VITALS: BP 144/74; PULSE 76
[2024-10-31] MEDS: NOVOLOG FLEXPEN-LOW RESISTANCE 2 UNITS SC (12:39)
--- NOTE | 2024-10-31 14:28 | W.DCSUMMARY ---
Discharge Summary
Discharge Data
Date of Admission: 10/27/24
Date of Discharge: 10/31/24
-
Pending Results: No
Discharge Plan
-
Patient Disposition: Jail/SNF
Discharge Diagnosis/Procedures: GI bleed likely exacerbated by Xarelto
Erosive Gastritis
Diabetes
Hypertension
Paroxysmal Atrial Fibrillation
History Vertebrae Fracture treated at [facility]
Condition: Fair
Diet: Diabetic, Carb Controlled
Activity: With assistance, As tolerated and With Walker
Driving Restrictions: Not until seen by your Dr
Bathing Restrictions: None
Blood Work: Repeat CBC with primary care provider in 1 week of discharge.
Other Services: PT and OT
Activity Restrictions/Additional Instructions:
Follow up with primary care provider in 1 week of discharge and GI in 4-6 weeks of discharge.
For erosive gastritis it is recommended that you avoid NSAIDs (aspirin, ibuprofen, meloxicam, naproxen, etc)
Protonix twice a day for 8 weeks is recommended. Follow up with GI or primary care provider before completing- to determine if extended course and/or reduce dose is necessary.
Lidocaine patches have been prescribed for back pain.
Amlodipine and combination drug triamterene-hydrochlorothiazide has been discontinued due to concerns intermittent low pressures. Follow up with primary care provider and/or other healthcare provider involved in your care before considering to
resume.
Please take medications as prescribed/recommended and follow up with primary care provider and/or other healthcare provider involved in your care for refills and/or further adjustment to your medication regimen as necessary.
Referrals:
Brandi White MD [Active] - in four to six weeks
Elle Liao MD [Family Provider] - in one week
Prescriptions:
New
lidocaine 4 % Adhesive Patch,Medicated
2 patch topical DAILY Qty: 15 0RF
Rx Instructions:
Back pain
pantoprazole 40 mg Tablet,Delayed Release (Dr/Ec)
40 mg PO BID 56 Days Qty: 112 0RF
Continued
multivitamin Tablet
1 tab PO DAILY
methocarbamol 500 mg Tablet
500 mg PO TID
acetaminophen [Tylenol] 325 mg Tablet
650 mg PO Q6H PRN (Reason: pain)
magnesium hydroxide [Milk of Magnesia] 400 mg/5 mL Suspension
30 ml PO DAILY PRN (Reason: no BM)
bisacodyl 10 mg Suppository
10 mg MA BID
oseltamivir [Tamiflu] 75 mg Capsule
75 mg PO DAILY
Rx Instructions:
prophylaxis for flu, ends on 10/31/2024
metformin 1,000 mg Tablet
1,000 mg PO BID
metoprolol succinate 25 mg Tablet Extended Release 24 Hr
25 mg PO DAILY
ramipril 10 mg Capsule
10 mg PO DAILY
aripiprazole [Abilify] 5 mg Tablet
5 mg PO DAILY
gabapentin 300 mg Tablet
900 mg PO DAILY
Xarelto 20 mg Tablet
20 mg PO DAILY
bupropion HCl 450 mg Tablet Extended Release 24 Hr
450 mg PO DAILY
testosterone 1.62 % (20.25 mg/1.25 gram) Gel In Packet
3 mg transdermal DAILY
Rx Instructions:
apply 3 pumps a day
Discontinued
amlodipine 2.5 mg Tablet
2.5 mg PO DAILY
triamterene-hydrochlorothiazid 37.5-25 mg Tablet
1 tab PO DAILY
Discharge Orders:
Discharge Patient (As Directed); Ordered 10/31/24
Ordered By: Val Hernandez
Discharge Date and Time
Print Language: TURKMEN
[2024-10-31 15:06] VITALS: BP 137/79
== END 2024-10-31 16:36 | DRG 378 ==
LOC: 4 WEST ACU 06:12
PROVIDERS: Emergency Medicine; Internal Medicine; ADMITTING PHYSICIAN Internal Medicine; ATTENDING PHYSICIAN Internal Medicine; CONSULT PHYSICIAN Internal Medicine Gastroenterology; EMERGENCY PHYSICIAN Student in an Organized Health Care Education/Training Program; FAMILY PHYSICIAN Family Medicine
PROC: 0DB68ZX Excision of Stomach, Via Natural or Artificial Opening Endoscopic, Diagnostic (ICD-10-PCS; 2024-10-28)
DX: K29.61 Other gastritis with bleeding (principal); D68.32 Hemorrhagic disorder due to extrinsic circulating anticoagulants; E11.9 Type 2 diabetes mellitus without complications; F31.9 Bipolar disorder, unspecified; I10 Essential (primary) hypertension; E78.5 Hyperlipidemia, unspecified; I48.0 Paroxysmal atrial fibrillation; Z79.01 Long term (current) use of anticoagulants; E83.42 Hypomagnesemia; K59.00 Constipation, unspecified
CPT/HCPCS: 88305; 80048; 80053; 82962; 83735; 84100; 85014; 85018; 85025; 85027; 85610; 85730; 86850; 86900; 86901; 87070; 88342; 96361; 96374; 97163; 97167; 97530; 97535; 99285

== ENCOUNTER 2025-01-17 03:22 | Emergency (ER) | payer OTHER, SELFPAY ==
[2025-01-17] VITALS (8 sets, daily range): BP systolic 118–156; BP diastolic 59–105; BMI 31.0
--- NOTE | 2025-01-17 03:52 | ED.GENMED ---
Addendum entered and electronically signed by Alvin Hampton PA-C 01/19/25 06:11:
Urine culture greater than 100,000 colony-forming units of gram-negative bacilli. On Keflex. Sensitivities pending
Original Note:
History of Present Illness
General
Chief Complaint: Fall
Source: patient and ambulance crew
Exam Limitations: dementia
Time Seen by Provider: 01/17/25 03:50
Nursing documentation reviewed up to this point in time: agreed with
History of Present Illness
History of Present Illness:
Elderly male from a nursing apparently rolled out of bed struck his head, has chronic back pain does not ambulate very well, he is on blood thinners, he is unsure of the details, no overt signs of head or neck trauma here, he is able to lift his
arms off the bed follows simple commands appears to be bedbound
Past History
Past History
ED Past Medical History: Arrthythmia, HTN and Psychiatric
Social History
Tobacco: Non-smoker
Alcohol: None
Drug: None
Living: prison
Employment: Not employed
Review of Systems
Review of Systems
Other source history: ambulance crew
All Other Systems: Not applicable
Phy Exam
Physical Exam
Physical Exam:
Physical Exam
General: no apparent distress, not acutely ill
Neck: No tongue bite
Lungs no respiratory distress
Neuro: Confused, follows simple commands lifts his arms off the bed legs are contracted
Skin: no rash
Psychiatric: cooperative
Extremities: no edema.
Course
Orders/Labs/Results
Orders:
Orders
01/17/25 03:31
CT Head W/o Iv Contrast Urgent
Comment:
Reason For Exam: fall with head strike, on xarelto
Cervical Spine wo Contrast CT [CT Cervical Spine W/o Iv Contr] Urgent
Comment:
Reason For Exam: fall with head strike, on xarelto
01/17/25 04:31
Straight cath- Treatment ONCE
Straight Cath As Directed
Frequency: One time now
01/17/25 04:38
Urinalysis Reflex To Culture Urgent
Date Specimen was Collected: 01/17/25
Time Specimen was Collected: 04:31
Urine Microscopic Reflex Cult Urgent
Urine Culture Urgent
ARMAAN Source: U
Specimen Description:
Date Specimen was Collected: 01/17/25
Time Specimen was Collected: 04:31
Abnormal Lab Results
01/17/25
04:38
Ur Occult Blood Reflex 1+ A
(Negative)
Leukocyte Esterase Rfl 3+ A
(Negative)
Urine WBC (Reflex) >100 A /HPF
(0-5)
Urine Bacteria (Reflex) Many A
(Negative)
Urine Albumin (Reflex) 2+ A
(Neg - Trace)
Vital Signs
Initial and Last Documented VS:
Initial Vital Signs
Temp Pulse Resp BP
98.5 F 76 24 124/59
01/17/25 03:24 01/17/25 03:24 01/17/25 03:24 01/17/25 03:24
Last Documented Vital Signs
Temp Pulse Resp BP Pulse Ox
98.5 F 92 17 118/81 98
01/17/25 03:24 01/17/25 06:48 01/17/25 06:48 01/17/25 06:48 01/17/25 06:48
MDM/Problems Addressed
Differential Diagnosis Includes:
Head trauma, neck trauma, roll out of bed
MDM/Problems Addressed:
Head trauma
Chronic conditions affecting care:
Mental illness GI bleed anticoag
Acute Exacerbation and/or Progression of Chronic Illness:
Mental illness GI bleed anticoagulated
*Pulse Oximetry
SaO2: 95
Oxygen Mode of Delivery: Room air
Patient hypoxic: no
*Pit Laborer Interpretation
Rate: Pit Laborer- N/A
*Critical Care Note
Total Time (30-74mins, 75-104mins- exclusive of procedures): Not Applicable
Update Note
Update Note:
Update CTs noted urine noted
ED Attending Note
-
Portions of this chart may have been created with voice recognition software.� Occasional wrong word or��sound alike� substitutions may have occurred due to the inherent limitations of voice recognition software.
Discharge Plan
Departure
Patient Disposition: Home (Routine Discharge)
Date of Disposition: 01/17/25
Time of Disposition: 06:24
Patient with high blood pressure during this ER visit?: No
Condition: Good
Discharge Problem:
Acute UTI
Instructions: Urinary tract infections in adults, Preventing falls in adults
Prescriptions:
New
cephalexin 500 mg capsule
500 mg PO Q6H 7 Days Qty: 28 0RF
No Action
multivitamin Tablet
1 tab PO DAILY
methocarbamol 500 mg Tablet
500 mg PO TID
acetaminophen [Tylenol] 325 mg Tablet
650 mg PO Q6H PRN (Reason: pain)
magnesium hydroxide [Milk of Magnesia] 400 mg/5 mL Suspension
30 ml PO DAILY PRN (Reason: no BM)
bisacodyl 10 mg Suppository
10 mg LA BID
metformin 1,000 mg Tablet
1,000 mg PO BID
metoprolol succinate 25 mg Tablet Extended Release 24 Hr
25 mg PO DAILY
ramipril 10 mg Capsule
10 mg PO DAILY
aripiprazole [Abilify] 5 mg Tablet
7 mg PO DAILY
gabapentin 300 mg Tablet
900 mg PO DAILY
Xarelto 20 mg Tablet
20 mg PO DAILY
bupropion HCl 450 mg Tablet Extended Release 24 Hr
450 mg PO DAILY
testosterone 1.62 % (20.25 mg/1.25 gram) Gel In Packet
3 mg transdermal DAILY
Rx Instructions:
apply 3 pumps a day
lidocaine 4 % Adhesive Patch,Medicated
2 patch topical DAILY Qty: 15 0RF
Rx Instructions:
Back pain
pantoprazole 40 mg Tablet,Delayed Release (Dr/Ec)
40 mg PO BID 56 Days Qty: 112 0RF
ondansetron HCl [Zofran] 4 mg Tablet
4 mg PO Q6H PRN (Reason: n/v)
amlodipine 5 mg Tablet
5 mg PO DAILY
Rx Instructions:
hold for sbp <130
potassium chloride 20 mEq Packet
20 meq PO BID
diclofenac sodium [Voltaren Arthritis Pain] 1 % Gel
2 g TOPICAL BID
Rx Instructions:
L knee
Referrals:
UNKNOWN - PT DOES,NOT KNOW [Family Provider]
Interventions
Interventions:
*Risk Screen - Suicide Last Done: 01/17/25 03:24
*General Assessment Last Done: 01/17/25 03:24
*Neglect/Abuse Screening Last Done: 01/17/25 03:24
*ED COVID-19 Vaccine History Last Done: 01/17/25 03:24
ED-Musculoskeletal Assessment Last Done: 01/17/25 04:51
ED- Neurological Assessment Last Done: 01/17/25 04:51
ED-Skin Assessment Last Done: 01/17/25 04:51
Discharge Date and Time
Print Language: IRISH
[2025-01-17 04:50] LABS: Urine Character Slightly Cloudy (Clear)
[2025-01-17 04:59] LABS: Urine Squamous Cell >30 /LPF (Few); Urine White Cell >100 /HPF (0-5)
--- NOTE | 2025-01-17 08:20 | EDRN ---
this RN called [facility] at [phone] to give verbal report and notify them that the pt will be sent back
== END 2025-01-17 09:43 | disposition home or self-care (01) ==
LOC: EMR 03:22
PROVIDERS: EMERGENCY PHYSICIAN Emergency Medicine
DX: N39.0 Urinary tract infection, site not specified (principal); S09.90XA Unspecified injury of head, initial encounter; W06.XXXA Fall from bed, initial encounter; Z79.01 Long term (current) use of anticoagulants; F03.90 Unspecified dementia, unspecified severity, without behavioral disturbance, psychotic disturbance, mood disturbance, and anxiety
CPT/HCPCS: 99285; 51701; 70450; 72125; 81003; 81015; 87077; 87086; 87186